=== PATIENT | female | born 1985 | race Caucasian/White ===

== ENCOUNTER 2018-11-25 13:19 | Emergency (ER) | payer BC ==
[2018-11-25] MEDS ORDERED: ACETAMINOPHEN 325 MG TABLET PO ONE (14:58)
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
[2018-11-25 16:59] VITALS: BP 112/60
== END 2018-11-25 17:01 | disposition home or self-care (01) ==
LOC: EEVIPCON 13:19 → ER 13:19
DX: S09.90XA Unspecified injury of head, initial encounter (principal); S69.91XA Unspecified injury of right wrist, hand and finger(s), initial encounter; T14.8XXA Other injury of unspecified body region, initial encounter; R51 Headache; M79.641 Pain in right hand; R07.81 Pleurodynia; Y04.2XXA Assault by strike against or bumped into by another person, initial encounter; F17.200 Nicotine dependence, unspecified, uncomplicated
CPT/HCPCS: 70450; 70486; 99284

== ENCOUNTER 2019-02-06 14:16 | Emergency (ER) | payer SELFPAY ==
--- NOTE | 2019-02-06 14:49 | ER Document Report ---
ED Medical Screen (RME) - General Chief Complaint: Suicidal Ideation Stated Complaint: PSYCH EVAL Time Seen by Provider: 02/06/19 14:45 Primary Care Provider: ZAK OLIVAS DO [Primary Care Provider] - Follow up as needed Notes: Patient is a 33-year-old female presents to the emergency department for suicidal ideations. Upon my evaluation patient is hysterically crying. She just keeps saying over and over again "I just need help, I am a good person, I do not want to end it all." According to nurses who spoke with the patient prior to my evaluation states patient was admitting to "taking a bunch of pills and sleeping forever." LUNGS: Clear to auscultation bilaterally, no wheezes, rales, or rhonchi. No respiratory distress. PSYCH: Flat affect, depressed mood. Hysterically crying. I have greeted and performed a rapid initial assessment of this patient. A comprehensive ED assessment and evaluation of the patient, analysis of test results and completion of the medical decision making process will be conducted by additional ED providers. I have specifically instructed the patient or family members with the patient to immediately return to any nursing staff should anything change in the patient's condition or with their chief complaint. This medical record was dictated with voice recognizing software. There may be grammatical, syntax errors that are unintended. TRAVEL OUTSIDE OF THE [place] IN LAST 30 DAYS: No - Related Data Allergies/Adverse Reactions: metoclopramide HCl [From Reglan] Allergy (Severe, Verified 02/06/19 14:19) Abnormal behavior prochlorperazine edisylate [From Compazine] Allergy (Severe, Verified 02/06/19 14:19) Abnormal behavior ketorolac [From Toradol] Allergy (Verified 02/06/19 14:19) sertraline HCl [From Zoloft] Allergy (Verified 02/06/19 14:19) skin crawls sumatriptan [From Imitrex] Allergy (Verified 02/06/19 14:19) skin crawls Influenza Virus Vaccines [Influenza Virus Vaccine] Adverse Reaction (Unknown, Verified 02/06/19 14:19) Hives Past Medical History - Past Medical History Cardiac Medical History: Denies: Hx Coronary Artery Disease, Hx Heart Attack, Hx Hypertension Pulmonary Medical History: Denies: Hx Asthma, Hx Bronchitis, Hx COPD, Hx Pneumonia Neurological Medical History: Reports: Hx Migraine. Denies: Hx Cerebrovascular Accident, Hx Seizures Renal/ Medical History: Reports: Hx Kidney Stones. Denies: Hx Peritoneal Dial ysis Musculoskeltal Medical History: Denies Hx Arthritis, Reports Hx Muscle Spasm - Attributed to MS Psychiatric Medical History: Reports: Hx Anxiety, Hx Depression Past Surgical History: Reports: Hx Adenoidectomy, Hx Appendectomy, Hx Cholecystectomy, Hx Hysterectomy, Hx Tonsillectomy - T/A, Hx Tubal Ligation - Immunizations Immunizations up to date: Yes Hx Diphtheria, Pertussis, Tetanus Vaccination: Yes Physical Exam - Vital signs Vitals: Temp Pulse Resp BP Pulse Ox 98.2 F 89 14 149/77 H 95 02/06/19 14:18 02/06/19 14:18 02/06/19 14:18 02/06/19 14:18 02/06/19 14:18 Course - Vital Signs Vital signs: Temp Pulse Resp BP Pulse Ox 98.2 F 89 14 149/77 H 95 02/06/19 14:18 02/06/19 14:18 02/06/19 14:18 02/06/19 14:18 02/06/19 14:18 Doctor's Discharge - Discharge Referrals: ZAK OLIVAS DO [Primary Care Provider] - Follow up as needed
[2019-02-06 15:27] LABS: ABSOLUTE BASOPHILS # (AUTO) 0.1 10^3/uL (0.0-0.2); ABSOLUTE EOSINOPHILS # (AUTO) 0.1 10^3/uL (0.0-0.6); ABSOLUTE LYMPHOCYTES (AUTO) 2.7 10^3/uL (0.5-4.7); ABSOLUTE MONOCYTES (AUTO) 0.7 10^3/uL (0.1-1.4); ABSOLUTE NEUT (AUTO) 9.1 10^3/uL (1.7-8.2); BASOPHILS % (AUTO) 1.1 % (0-2); EOSINOPHILS % (AUTO) 0.5 % (0-6); HEMATOCRIT 43.4 % (36.0-47.0); HEMOGLOBIN 14.7 g/dL (12.0-15.5); LYMPHOCYTES % (AUTO) 21.3 % (13-45); MEAN CORPUSCULAR HEMOGLOBIN 29.2 pg (27.0-33.4); MEAN CORPUSCULAR HGB CONC 33.9 g/dL (32.0-36.0); MEAN CORPUSCULAR VOLUME 86 fl (80-97); MONOCYTES % (AUTO) 5.3 % (3-13); RED BLOOD COUNT 5.04 10^6/uL (3.72-5.28); RED CELL DISTRIBUTION WIDTH 13.6 % (11.5-14.0); SEGMENTED NEUTROPHILS % (AUTO) 71.8 % (42-78); TOTAL CELLS COUNTED % (AUTO) 100 %; WHITE BLOOD COUNT 12.7 10^3/uL (4.0-10.5)
[2019-02-06 15:35] LABS: PLATELET COUNT 348 10^3/uL (150-450)
[2019-02-06 15:41] LABS: ALANINE AMINOTRANSFERASE 26 U/L (9-52); ALBUMIN 4.8 g/dL (3.5-5.0); ALKALINE PHOSPHATASE 53 U/L (38-126); ANION GAP 11 (5-19); ASPARTATE AMINO TRANSFERASE 22 U/L (14-36); BILIRUBIN,DIRECT 0.4 mg/dL (0.0-0.4); BILIRUBIN,TOTAL 0.6 mg/dL (0.2-1.3); BLOOD UREA NITROGEN 7 mg/dL (7-20); CALCIUM 10.3 mg/dL (8.4-10.2); CARBON DIOXIDE 28 mmol/L (22-30); CHLORIDE 104 mmol/L (98-107); GLUCOSE 103 mg/dL (75-110); POTASSIUM 3.7 mmol/L (3.6-5.0); SODIUM 143.4 mmol/L (137-145); TOTAL PROTEIN 7.8 g/dL (6.3-8.2)
[2019-02-06 15:42] LABS: ACETAMINOPHEN < 10 ug/mL (10-30); ALCOHOL < 10 mg/dL (NONE DETECTED); SALICYLATE < 1.0 mg/dL (2.0-20.0)
--- NOTE | 2019-02-06 15:51 | ER Document Report ---
ED Psych Disorder / Suicide <AR POND - Last Filed: 02/07/19 12:55> - General TRAVEL OUTSIDE OF THE U.S. IN LAST 30 DAYS: No <ZAK DOWD - Last Filed: 02/07/19 13:19> - General Chief Complaint: Suicidal Ideation Stated Complaint: PSYCH EVAL Time Seen by Provider: 02/06/19 14:45 Primary Care Provider: [facility] [Outside] - 02/07/19 [facility] [Outside] - Follow up as needed ZAK OLIVAS DO [Primary Care Provider] - Follow up as needed Notes: Patient says that she is dependent on drugs, mostly heroin for many years. She says that she uses any drugs she can get her hands on. She is been through detox once before about 2 years ago without success. Patient last used heroin Thursday evening. At this time, she is experiencing panic attacks, sweats, nausea, and vomiting. Denies any recent illness. Denies any fevers. Past medical history of anxiety and depression. (ZAK DOWD) - Related Data Allergies/Adverse Reactions: metoclopramide HCl [From Reglan] Allergy (Severe, Verified 02/06/19 14:19) Abnormal behavior prochlorperazine edisylate [From Compazine] Allergy (Severe, Verified 02/06/19 14:19) Abnormal behavior ketorolac [From Toradol] Allergy (Verified 02/06/19 14:19) sertraline HCl [From Zoloft] Allergy (Verified 02/06/19 14:19) skin crawls sumatriptan [From Imitrex] Allergy (Verified 02/06/19 14:19) skin crawls Influenza Virus Vaccines [Influenza Virus Vaccine] Adverse Reaction (Unknown, Verified 02/06/19 14:19) Hives Past Medical History - Social History Smoking Status: Current Every Day Smoker Frequency of alcohol use: None Drug Abuse: Cocaine, Heroin, Other Family History: Reviewed & Not Pertinent Patient has suicidal ideation: Yes Patient has homicidal ideation: No Neurological Medical History: Reports: Hx Migraine. Denies: Hx Cerebrovascular Accident, Hx Seizures Renal/ Medical History: Reports: Hx Kidney Stones Musculoskeletal Medical History: Denies Hx Arthritis, Reports Hx Muscle Spasm - Attributed to MS Psychiatric Medical History: Reports: Hx Anxiety, Hx Depression Past Surgical History: Reports: Hx Adenoidectomy, Hx Appendectomy, Hx Cholecystectomy, Hx Hysterectomy, Hx Tonsillectomy - T/A, Hx Tubal Ligation - Immunizations Immunizations up to date: Yes Hx Diphtheria, Pertussis, Tetanus Vaccination: Yes <ZAK DOWD - Last Filed: 02/07/19 13:19> Review of Systems <ZAK DOWD - Last Filed: 02/07/19 13:19> - Review of Systems Notes: CONSTITUTIONAL : Denies fever. CARDIOVASCULAR: Denies chest pain. RESPIRATORY: Denies cough, chest congestion, or shortness of breath. GASTROINTESTINAL: Patient has had some abdominal cramping as well as nausea and vomiting. A. GENITOURINARY: Denies difficulty or painful urinating, urinary frequency, blood in urine. (ZAK DOWD) Physical Exam - Vital signs Interpretation: Normal <ZAK DOWD - Last Filed: 02/07/19 13:19> - Vital signs Vitals: Temp Pulse Resp BP Pulse Ox 98.2 F 89 14 149/77 H 95 02/06/19 14:18 02/06/19 14:18 02/06/19 14:18 02/06/19 14:18 02/06/19 14:18 Notes: PHYSICAL EXAMINATION: GENERAL: Very anxious, tearful, HEAD: Atraumatic, normocephalic. NECK: Normal range of motion, supple. LUNGS: Breath sounds clear and equal bilaterally. HEART: Regular rate and rhythm without murmurs heard. ABDOMEN: Soft, nontender. No guarding or rebound or masses felt. (ZAK DOWD) Course - Laboratory Result Diagrams: 02/06/19 15:00 02/06/19 15:00 <AR POND - Last Filed: 02/07/19 12:55> - Laboratory Result Diagrams: 02/06/19 15:00 02/06/19 15:00 <ZAK DOWD - Last Filed: 02/07/19 13:19> - Re-evaluation Re-evalutation: 02/06/19 16:30 Routine labs will be ordered. Mental health consult requested. (ZAK DOWD) - Vital Signs Vital signs: Temp Pulse Resp BP Pulse Ox 98 F 86 16 102/54 L 97 02/07/19 09:32 02/07/19 09:32 02/07/19 09:32 02/07/19 09:32 02/07/19 09:32 - Laboratory Laboratory results interpreted by me: 02/06/19 02/06/19 02/06/19 15:00 15:00 16:48 WBC 12.7 H Absolute Neutrophils 9.1 H Calcium 10.3 H Urine Urobilinogen 2.0 H Ur Leukocyte Esterase MODERATE H Salicylates < 1.0 L Acetaminophen < 10 L Discharge <AR POND - Last Filed: 02/07/19 12:55> <ZAK DOWD - Last Filed: 02/07/19 13:19> - Discharge Clinical Impression: Suicidal ideation, Heroin abuse, Heroin withdrawal, Desire for detoxification Condition: Stable Disposition: HOME, SELF-CARE Additional Instructions: You have been evaluated by both medical and behavioral health providers while in the emergency department. You have been cleared from both acute medical and psychiatric issues. You stated you want and need help with heroin addiction and expressed feeling restless (often withdrawal symptom). It is felt you would benefit from inpatient heroin detoxification which [facility] will assist you with and is voluntary. DEPRESSION: Your evaluation reveals that you have mental depression. While symptoms may be vague, they often include disturbance of sleep, fatigue, loss of appetite, and general loss of interest in life. While depression may be a side effect of drugs, or a reaction to a major change in your life, many cases have no known cause. If depression is acute, and related to a major loss in your life, you can expect it to clear completely with time. If you have been depressed a long time, are prone to repeated bouts of depression or low mood, or have been thinking of suicide, get help. Depression can be treated with anti-depressant medication and counselling. Long-term depression will often take a few weeks to clear, even with appropriate medication. Follow-up care is important. SUICIDAL IDEATION: Suicidal ideation is a common medical term for thoughts about suicide, w hich may be as detailed as a formulated plan, without the suicidal act itself. Although most people who undergo suicidal ideation do not commit suicide, some go on to make suicide attempts. The range of suicidal ideation varies greatly from fleeting to detailed planning, role playing, and unsuccessful attempts. While thoughts about suicide are common, most people do not carry out serious actions to commit suicide. Based upon your evaluation and discussion with you, we do not believe you are currently at risk to act upon your thoughts of suicide. You have agreed to return to the Emergency Department, at any time, if you feel inclined to act upon your suicidal thoughts. NARCOTIC / OPIOD ABUSE: Narcotics and opioids are pain-relieving drugs that are often abused. They a re addicting. Narcotics cause euphoria, but it often takes increasing amounts to "feel good" and avoid withdrawal symptoms. Overdose of narcotics causes small pupils, coma, and decreased breathing. It's a common cause of . Purity of street narcotics is unpredictable. Injection of narcotics is risky for abscesses, endocarditis (heart infection), pneumonia, and AIDS. Withdrawal from narcotics causes goose bumps, watery mouth, sweating, nasal congestion, muscle aches, abdominal cramps, vomiting, and diarrhea. There's often restlessness and confusion. Treatment programs are available, but you must make the decision to quit. Medication (such as clonidine) can be prescribed to control the symptoms of withdrawal. FOLLOW-UP CARE: You have been provided prescriptions for Zyprexa 2.5MG twice a day for mood stabilization/impulse control/can aid with abstaining from substances and Vistaril 50MG as needed for withdrawal/anxiety. You should take these as prescri bed. You are being linked to [facility] for voluntary heroin detoxification placement. They are meeting you in the emergency department lobby at discharge. If you experience worsening or a significant change in your symptoms, notify the physician immediately, utilize mobile crisis or return to the Emergency Department at any time for re-evaluation. Prescriptions: Hydroxyzine Pamoate [Vistaril 50 mg Capsule] 50 mg PO QIDP PRN #30 capsule PRN Reason: Olanzapine [Zyprexa 2.5 Mg Tablet] 2.5 mg PO BID #30 tablet Referrals: ZAK OLIVAS DO [Primary Care Provider] - Follow up as needed [facility] [Outside] - Follow up as needed [facility] [Outside] - 02/07/19
[2019-02-06 17:12] LABS: AMORPHOUS SEDIMENT,URINE TRACE /HPF; APPEARANCE,URINE CLOUDY; BILIRUBIN,URINE NEGATIVE (NEGATIVE); CALCIUM OXALATE CRYSTALS,URINE RARE /HPF; COLOR,URINE YELLOW; GLUCOSE, URINE NEGATIVE (NEGATIVE); KETONES,URINE NEGATIVE (NEGATIVE); LEUKOCYTE ESTERASE,URINE MODERATE (NEGATIVE); NITRITE,URINE NEGATIVE (NEGATIVE); PROTEIN,URINE NEGATIVE (NEGATIVE)
[2019-02-06] MEDS: HYDROXYZINE PAMOATE 50 MG CAPSULE PO PRN (17:17)
[2019-02-06] MEDS: OLANZAPINE 2.5 MG TABLET PO SCH (17:17)
[2019-02-06 17:23] LABS: URINE AMPHETAMINES SCREEN NEGATIVE; URINE BARBITURATES SCREEN NEGATIVE; URINE BENZODIAZEPINES SCREEN NEGATIVE; URINE COCAINE SCREEN UNCONFIRMED POSITIVE; URINE MARIJUANA (THC) SCREEN NEGATIVE; URINE METHADONE SCREEN NEGATIVE; URINE PHENCYCLIDINE SCREEN NEGATIVE
--- NOTE | 2019-02-06 19:01 | EKG REPORT ---
SEVERITY:- BORDERLINE ECG - SINUS RHYTHM BORDERLINE T ABNORMALITIES, ANTERIOR LEADS : Confirmed by: Feli Kunz MD 06-Feb-2019 19:01:06
--- NOTE | 2019-02-06 22:01 | PSYCHOLOGICAL NOTE ---
Psych Note - Psych Note Date seen by psych provider: 02/06/19 Time seen by psych provider: 14:35 - Chart review at 1435. Discussion with Attending ED Physician at 1543. Evaluation from [id number]. Contacted [facility] for possible referral at 1616. Psych Note: Presenting Problem: Walk in said she was hearing voices, had SI with plan to OD, that she was addicted to drugs and needed help and she presented tearful in triage. She has an allergy to Zoloft listed. Her home medications are listed as Ambien 10MG QHS PRN, Prozac 40MG QD, Klonopin 0.1MG Q12 PRN and Clonidine 1MG ASDIR PRN. Attending ED Physician reported patient said she would use any drugs she could get her hands on, preferred Heroin, last used Thursday, has had previous Detox and noted withdrawal of panic attacks/nausea/vomiting. She stated she injects the heroin and was at the [facility] 2 years ago. She denied any Methadone or Suboxone treatment. She stated she "needed something to relax," could not lay still and became tearful. She stated she wanted help. She reported she still has BCBS, was made aware of [facility] or [facility]. She stated she preferred something in [place] but was open to treatment that was going to be effective. Registration noted when they run patient's information [facility] says inactive status. Male named Cong at bedside and patient gave verbal consent to speak freely in his presence. Contacted Elina Cold Saw Operator at [facility] for referral. Provided patient's es 's name and birthday which was not enough for their insurance verification. Tried calling [facility] about obtaining new insurance card (patient gave verbal consent to do so) however person said it was the wrong number. Diagnosis: Opioid Use Disorder, Severe per patient Medication recommendations made by the psychiatric medical provider, Dr. Eric MD., includes: Add Zyprexa 2.5MG twice a day for psychosis/mood stabilization/impulse control/withdrawal Vistaril 50MG every 4 hours as needed for anxiety/agitation Impression/Plan: Recommendation for 24 Hour IVC Petition. Patient initially endorsed SI with plan to OD and hearing voices. She admitted to heroin use via injection and using anything she could get her hands on. She stated she wanted help. She mentioned panic attacks, nausea, vomiting, was tearful and unable to lay still which could be withdrawal symptoms since she reported last use as Thursday. Tried making referral to [facility] but unable to verify BCBS. Consulted with Dr. Jiang regarding the management and care of patient. ED Physician in agreement with recommendations.
[2019-02-07 09:34] VITALS: BP 102/54
[2019-02-07] MEDS: HYDROXYZINE PAMOATE 50 MG CAPSULE PO PRN (09:55)
[2019-02-07] MEDS: OLANZAPINE 2.5 MG TABLET PO SCH (09:55)
--- NOTE | 2019-02-07 10:05 | ER Document Report ---
Doctor's Note Notes: 02/07/19 10:04 Rounds: Chart reviewed and patient interviewed. I saw this patient yesterday when she was admitted. She is supposed to be addicted to opiates and is going into withdrawal. Multiple complaints of shakes, abdominal cramping, nausea,. Patient's labs were positive for cocaine. Her urine looks suggestive of a UTI, the patient has no symptoms of UTI. Vital signs are all essentially normal. Patient appears to be medically stable for transfer or discharge. Rylie Bang MD
--- NOTE | 2019-02-08 09:17 | PSYCHOLOGICAL NOTE ---
Psych Note - Psych Note Date seen by psych provider: 02/07/19 Time seen by psych provider: 09:24 - Evaluation from [id number]. Coordination with [facility]. Psych Note: Presenting Problem: Walk in said she was hearing voices, had SI with plan to OD, that she was addicted to drugs and needed help and she presented tearful in triage. Patient was started on medications (Zyprexa 2.5MG BID, Vistaril 50MG QID PRN) yesterday and held to ensure she tolerated them well and also assist in managing heroin detox. She stated she wanted help. She thought she still had BCBS, held overnight to allow time for confirmation or denial of such, unable to locate and active policy (per [facility] Registration and [facility] could not verify with minimal information provided about ex ) and wanted to ensure linkage to appropriate detox/treatment facilities. Today she reported feeling "restless" and said "I just want help." She presented agitated and irritable likely due to withdrawal. Only when informed of plan of care to discharge to [facility] for voluntary detox placement did she report being homeless and not having money to fill prescriptions. She then became irritable as evidenced by louder tone and turning her back toward this clinician, then started crying (mood lability another likely symptom of withdrawal). She stated "you guys don't even care, you are not helping me, what you are just going to let me go and I'm suicidal." She did not provide any plan or intent. She had not mentioned anything related to SI since her initial triage assessment. Patient was alert and oriented x5 and was able to express self/wants/needs. [facility] assisted patient in making phone call from nurses station phone to [facility] and planned meeting in ED lobby at discharge. [facility] worker, Hugo, met with patient at ED. This clinician and him coordinated care. This clinician called to lobby for another patient. This patient was sitting nearby and asked where she was supposed to go and what she was supposed to do. She noted [facility] the [facility], they were full, and IF instructed her to call the [facility] first thing tomorrow morning. She stated she could not go to the local homeless correction. She was tearful about the drink vending machine taking her money. This clinician went to ED for additional correction/housing resources. Provided patient with some drinks (2 small juices, floyd sher in Styrofoam cup) and information on [facility] [place] [facility] Explained she could try there or other surrounding [facility] shelters but would need transportation. Inquired if she reached out to her friend Cong. She was on the phone with her mother trying to get support. She asked this clinician to call her mother, Kareem ([phone]) to inform her of plan and what she has been linked to. Patient was asked again if this clinician had verbal consent to call mother and include her in plan of care. Patient gave verbal consent. Called mother and informed her patient came to the ED seeking help, had been linked to [facility] for voluntary detox placement, she is to call the [facility] in the morning to check in bed availability. Mother stated she agreed to allow patient to stay the night but only one night. Mother stated patient has "burned her bridges." Patient made war e mother was giving her one night, she was encouraged to call [facility] in the morning and if no bed availability to call [facility] for other placement option availability. She agreed to do so. Diagnosis: 304.00 (F11.20) Opioid Use Disorder, Severe per patient 292.0 (F11.23) Opioid Withdrawal (likely since patient reported last use Thursday) Impression/Plan: Patient is cleared from acute psychiatric services. Recommendation to rescind 24 Hour IVC Petition. She was held overnight to begin medications, aid in managing withdrawal symptoms and provide linkage to volunta ry heroin detox as she requested. She never mentioned SI except initial triage and then when being informed of plan of care. At plan of care she also noted being homeless and having no money. Linked patient directly to [facility] for voluntary detox placement. [facility] worker, Hugo, met patient. Patient also able to get some support from her mother (able to spend the night there, shows resourcefulness, planning and making arrangement so hope). Provided patient with the outpatient MH resource sheet which highlighted [facility] contact information, as well as [facility] for outpatient dual diagnosis substance abuse and mental health services/treatment. She was also given [facility] contact information and informed she could try surrounding [facility] homeless shelters if she needed additional temporary housing. She was reminded/encouraged to call [facility] in the morning for bed availability and if none to contact [facility]. Consulted with Dr. Jiang regarding the management and care of patient. ED Physician in agreement with recommendations.
== END 2019-02-07 15:00 | disposition home or self-care (01) ==
LOC: ER 14:16
DX: F11.23 Opioid dependence with withdrawal (principal); F14.10 Cocaine abuse, uncomplicated; F41.0 Panic disorder [episodic paroxysmal anxiety]; R45.851 Suicidal ideations; R61 Generalized hyperhidrosis; R11.2 Nausea with vomiting, unspecified; R10.9 Unspecified abdominal pain; F17.200 Nicotine dependence, unspecified, uncomplicated; Z88.8 Allergy status to other drugs, medicaments and biological substances; Z88.6 Allergy status to analgesic agent
CPT/HCPCS: 93005; 99285; 36415; 80307 ×4; 84703; 85025; 80053; 81001; 93010; J3490 ×2

== ENCOUNTER 2019-08-27 10:13 | Emergency (ER) | payer SELFPAY ==
[2019-08-27] MEDS ORDERED: BISMUTH SUBSALICYLATE 262 MG TAB.CHEW PO ONE (10:41)
[2019-08-27] MEDS ORDERED: ONDANSETRON 4 MG TAB.RAPDIS PO ONE (10:41)
--- NOTE | 2019-08-27 10:46 | ER Document Report ---
HPI - HPI Patient complains to provider of: Nausea vomiting diarrhea body aches flu symptoms Time Seen by Provider: 08/27/19 10:36 Onset: Yesterday Onset/Duration: Sudden, Persistent Quality of pain: Achy Pain Level: 2 Context: 34-year-old female with history of migraines presents emergency department with complaints of nausea vomiting diarrhea body aches since yesterday. Unsure of fevers because she has been taking Tylenol Motrin as indicated. She reports she is having trouble holding fluids down. Reports her body hurts she is has chills. Patient did not receive the flu vaccine. Associated Symptoms: Body/muscle aches, Diarrhea, Nausea, Vomiting Exacerbated by: Denies Relieved by: Denies Similar symptoms previously: No Recently seen / treated by doctor: No - REPRODUCTIVE LMP: hysterectomy Reproductive: DENIES: : Past Medical History - General Information source: Patient Last Menstrual Period: Hysterectomy - Social History Smoking Status: Current Every Day Smoker Cigarette use (# per day): Yes Chew tobacco use (# tins/day): No Frequency of alcohol use: None Drug Abuse: None Occupation: [employer] Family History: Reviewed & Not Pertinent Patient has suicidal ideation: No Patient has homicidal ideation: No - Past Medical History Cardiac Medical History: Denies: Hx Coronary Artery Disease, Hx Heart Attack, Hx Hypertension Pulmonary Medical History: Denies: Hx Asthma, Hx Bronchitis, Hx COPD, Hx Pneumonia Neurological Medical History: Reports: Hx Migraine. Denies: Hx Cerebrovascular Accident, Hx Seizures Renal/ Medical History: Reports: Hx Kidney Stones. Denies: Hx Peritoneal Dialysis Musculoskeletal Medical History: Denies Hx Arthritis, Reports Hx Muscle Spasm - Attributed to MS Psychiatric Medical History: Reports: Hx Anxiety, Hx Depression Past Surgical History: Reports: Hx Adenoidectomy, Hx Appendectomy, Hx C holecystectomy, Hx Hysterectomy, Hx Tonsillectomy - T/A, Hx Tubal Ligation - Immunizations Immunizations up to date: Yes Hx Diphtheria, Pertussis, Tetanus Vaccination: Yes Vertical Provider Document - CONSTITUTIONAL Agree With Documented VS: Yes Exam Limitations: No Limitations General Appearance: WD/WN, No Apparent Distress - Nontoxic looking - INFECTION CONTROL TRAVEL OUTSIDE OF THE [place]. IN LAST 30 DAYS: No - HEENT HEENT: Atraumatic, Normocephalic. negative: Conjuctival Injection, Pharyngeal Erythema, Tympanic Membrane Red - Right TM blocked by cerumen - NECK Neck: Normal Inspection, Supple. negative: Lymphadenopathy-Left, Lymphadenopathy-Right - RESPIRATORY Respiratory: Breath Sounds Normal, No Respiratory Distress - CARDIOVASCULAR Cardiovascular: Regular Rate, Regular Rhythm - GI/ABDOMEN Gastrointestinal: Abdomen Soft, Abdomen Non-Tender - BACK Back: Normal Inspection. negative: CVA Tenderness-Right, CVA Tenderness-Left - MUSCULOSKELETAL/EXTREMETIES Musculoskeletal/Extremeties: MAEW, FROM - NEURO Level of Consciousness: Awake, Alert, Appropriate Motor/Sensory: No Motor Deficit - DERM Integumentary: Warm, Dry, No Rash Course - Re-evaluation Re-evalutation: 08/27/19 10:44 Patient presents emergency department with flulike symptoms for the past 36 hours. Reports nausea vomiting diarrhea. Has been taking Tylenol and Motrin. Last Motrin was approximately 1 hour ago. She reports she has been able to keep fluids down. Did not receive her flu shot. Denies recent travel. Patient reports hive allergy to Toradol but has taken Pepto in the past. Laboratory Patient drinking p.o. fluids. Influenza negative, labs unremarkable. Leuks noted in UA. Patient denies pain with void denies urinary frequency. Patient was prescribed Zofran dispense pack. Instructed to take medications as prescribed push fluids take Pepto as indicated. She was instructed to return here if she is unable to hold any fluids down. She verbalized understanding to all instructions 08/27/19 08/27/19 08/27/19 10:48 10:52 10:52 WBC 13.9 H RBC 4.99 Hgb 15.2 Hct 44.0 MCV 88 MCH 30.5 MCHC 34.6 RDW 13.0 Plt Count 359 Lymph % (Auto) 13.4 [place] % (Auto) 5.3 Eos % (Auto) 1.5 Baso % (Auto) 0.5 Absolute Neuts (auto) 11.0 H Absolute Lymphs (auto) 1.9 Absolute Monos (auto) 0.7 Absolute Eos (auto) 0.2 Absolute Basos (auto) 0.1 Seg Neutrophils % 79.3 H Sodium 139.7 Potassium 4.2 Chloride 106 Carbon Dioxide 23 Anion Gap 11 BUN 13 Creatinine 0.62 Est GFR ( Amer) > 60 Est GFR (MDRD) Non-Af > 60 Glucose 86 Calcium 9.8 Total Bilirubin 0.7 Direct Bilirubin 0.0 Neonat Total Bilirubin Not Reportable Neonat Direct Bilirubin Not Reportable Neonat Indirect Bili Not Reportable AST 21 ALT 19 Alkaline Phosphatase 51 Total Protein 7.5 Albumin 4.8 Urine Color Urine Appearance Urine pH Ur Specific [place] Urine Protein Urine Glucose (UA) Urine Ketones Urine Blood Urine Nitrite Urine Bilirubin Urine Urobilinogen Ur Leukocyte Esterase Urine WBC (Auto) Urine RBC (Auto) Urine Bacteria (Auto) Squamous Epi Cells Auto Urine Mucus (Auto) Urine Ascorbic Acid POC Stool Occult Blood Influenza A (Rapid) NEGATIVE Influenza B (Rapid) NEGATIVE 08/27/19 08/27/19 12:25 13:40 WBC RBC Hgb Hct MCV MCH MCHC RDW Plt Count Lymph % (Auto) [place] % (Auto) Eos % (Auto) Baso % (Auto) Absolute Neuts (auto) Absolute Lymphs (auto) Absolute Monos (auto) Absolute Eos (auto) Absolute Basos (auto) Seg Neutrophils % Sodium Potassium Chloride Carbon Dioxide Anion Gap BUN Creatinine Est GFR ( Amer) Est GFR (MDRD) Non-Af Glucose Calcium Total Bilirubin Direct Bilirubin Neonat Total Bilirubin Neonat Direct Bilirubin Neonat Indirect Bili AST ALT Alkaline Phosphatase Total Protein Albumin Urine Color YELLOW Urine Appearance CLOUDY Urine pH 5.0 Ur Specific [place] 1.025 Urine Protein NEGATIVE Urine Glucose (UA) NEGATIVE Urine Ketones TRACE H Urine Blood SMALL H Urine Nitrite NEGATIVE Urine Bilirubin NEGATIVE Urine Urobilinogen NEGATIVE Ur Leukocyte Esterase MODERATE H Urine WBC (Auto) 15 Urine RBC (Auto) 14 Urine Bacteria (Auto) TRACE Squamous Epi Cells Auto 54 Urine Mucus (Auto) MANY Urine Ascorbic Acid NEGATIVE POC Stool Occult Blood NEGATIVE Influenza A (Rapid) Influenza B (Rapid) 08/27/19 17:19 - Vital Signs Vital signs: Temp Pulse Resp BP Pulse Ox 97.8 F 78 16 107/71 99 08/27/19 10:21 08/27/19 10:21 08/27/19 10:21 08/27/19 10:21 08/27/19 10:21 - Laboratory Result Diagrams: 08/27/19 10:52 08/27/19 10:52 Discharge - Discharge Clinical Impression: Nausea vomiting and diarrhea Condition: Stable Disposition: HOME, SELF-CARE Instructions: Antinausea Medication ([facility]), Diarrhea, Nonspecific ([facility]), OTC Antidiarrhea Medication ([facility]), Vomiting ([facility]) Additional Instructions: *You have been evaluated for nausea/vomiting/diarrhea, *Take medication as prescribed *Over the counter anti-diarrheal as indicated *Ensure adequate fluid intake as discussed to prevent dehydration-clear liquids advance as tolerated Good handwashing *Follow up with a primary care provider within 1 week for recheck *Return to ED for worsening condition, changes, needs, continued vomiting and diarrhea Forms: Smoking Cessation Education
[2019-08-27 11:09] LABS: ABSOLUTE BASOPHILS # (AUTO) 0.1 10^3/uL (0.0-0.2); ABSOLUTE EOSINOPHILS # (AUTO) 0.2 10^3/uL (0.0-0.6); ABSOLUTE LYMPHOCYTES (AUTO) 1.9 10^3/uL (0.5-4.7); ABSOLUTE MONOCYTES (AUTO) 0.7 10^3/uL (0.1-1.4); BASOPHILS % (AUTO) 0.5 % (0-2); EOSINOPHILS % (AUTO) 1.5 % (0-6); HEMOGLOBIN 15.2 g/dL (12.0-15.5); LYMPHOCYTES % (AUTO) 13.4 % (13-45); MEAN CORPUSCULAR HEMOGLOBIN 30.5 pg (27.0-33.4); MEAN CORPUSCULAR HGB CONC 34.6 g/dL (32.0-36.0); MEAN CORPUSCULAR VOLUME 88 fl (80-97); MONOCYTES % (AUTO) 5.3 % (3-13); PLATELET COUNT 359 10^3/uL (150-450); RED BLOOD COUNT 4.99 10^6/uL (3.72-5.28); SEGMENTED NEUTROPHILS % (AUTO) 79.3 % (42-78); TOTAL CELLS COUNTED % (AUTO) 100 %; WHITE BLOOD COUNT 13.9 10^3/uL (4.0-10.5)
[2019-08-27 11:27] LABS: ALBUMIN 4.8 g/dL (3.5-5.0); ALKALINE PHOSPHATASE 51 U/L (38-126); ANION GAP 11 (5-19); ASPARTATE AMINO TRANSFERASE 21 U/L (14-36); BILIRUBIN,TOTAL 0.7 mg/dL (0.2-1.3); BLOOD UREA NITROGEN 13 mg/dL (7-20); CALCIUM 9.8 mg/dL (8.4-10.2); CARBON DIOXIDE 23 mmol/L (22-30); CHLORIDE 106 mmol/L (98-107); GLUCOSE 86 mg/dL (75-110); POTASSIUM 4.2 mmol/L (3.6-5.0); TOTAL PROTEIN 7.5 g/dL (6.3-8.2)
[2019-08-27 11:33] LABS: A TYPE INFLUENZA AG NEGATIVE (NEGATIVE); B INFLUENZA AG NEGATIVE (NEGATIVE)
[2019-08-27 12:58] LABS: APPEARANCE,URINE CLOUDY; BILIRUBIN,URINE NEGATIVE (NEGATIVE); COLOR,URINE YELLOW; GLUCOSE, URINE NEGATIVE (NEGATIVE); KETONES,URINE TRACE mg/dL (NEGATIVE); LEUKOCYTE ESTERASE,URINE MODERATE (NEGATIVE); NITRITE,URINE NEGATIVE (NEGATIVE); PROTEIN,URINE NEGATIVE (NEGATIVE); URINE SPECIFIC GRAVITY 1.025; UROBILINOGEN,URINE NEGATIVE mg/dL (<2.0)
[2019-08-27 14:32] VITALS: BP 105/55
[2019-08-27] MEDS ORDERED: ONDANSETRON ODT 4 MG TAB (6 TAB/ER DISP) PO PRN (14:43)
== END 2019-08-27 15:21 | disposition home or self-care (01) ==
LOC: ER 10:13
DX: R11.2 Nausea with vomiting, unspecified (principal); R19.7 Diarrhea, unspecified; M79.10 Myalgia, unspecified site; F17.210 Nicotine dependence, cigarettes, uncomplicated
CPT/HCPCS: 99283; 85025; 80053; 81001; 87804; S0119

== ENCOUNTER 2019-09-13 19:13 | Emergency (ER) | payer SELFPAY ==
[2019-09-13] MEDS ORDERED: NORMAL SALINE 1000 ML 1,000 ML IV ONE ×2 (19:50→23:19)
--- NOTE | 2019-09-13 19:53 | ER Document Report ---
ED Medical Screen (RME) - General Chief Complaint: Diarrhea Stated Complaint: NAUSEA,VOMITING Time Seen by Provider: 09/13/19 19:44 Notes: Patient is a 34-year-old female who presents emergency department with a chief complaint of nausea, vomiting diarrhea. Patient reports this started today. Patient denies sick contacts. Patient reports body aches. Denies fever. Reports chills. Reports vomiting greater than 20 times today and having greater than 20 episodes of diarrhea. Denies blood in the stool or vomitus. Patient was noted to be hypotensive by EMS with a systolic of 89. Patient was given 8 of Zofran and 1 L of saline and reports that this did help with her symptoms. TRAVEL OUTSIDE OF THE [place] IN LAST 30 DAYS: No - Related Data Allergies/Adverse Reactions: metoclopramide HCl [From Reglan] Allergy (Severe, Verified 09/13/19 19:43) Abnormal behavior prochlorperazine edisylate [From Compazine] Allergy (Severe, Verified 09/13/19 19:43) Abnormal behavior ketorolac [From Toradol] Allergy (Verified 09/13/19 19:43) sertraline HCl [From Zoloft] Allergy (Verified 09/13/19 19:43) skin crawls sumatriptan [From Imitrex] Allergy (Verified 09/13/19 19:43) skin crawls Influenza Virus Vaccines [Influenza Virus Vaccine] Adverse Reaction (Unknown, Verified 09/13/19 19:43) Hives Past Medical History - Social History Frequency of alcohol use: None Drug Abuse: None - Past Medical History Cardiac Medical History: Denies: Hx Coronary Artery Disease, Hx Heart Attack, Hx Hypertension Pulmonary Medical History: Denies: Hx Asthma, Hx Bronchitis, Hx COPD, Hx Pneumonia Neurological Medical History: Reports: Hx Migraine. Denies: Hx Cerebrovascular Accident, Hx Seizures Renal/ Medical History: Reports: Hx Kidney Stones. Denies: Hx Peritoneal Janice lysis Musculoskeltal Medical History: Denies Hx Arthritis, Reports Hx Muscle Spasm - Attributed to MS Psychiatric Medical History: Reports: Hx Anxiety, Hx Depression Past Surgical History: Reports: Hx Adenoidectomy, Hx Appendectomy, Hx Cholecystectomy, Hx Hysterectomy, Hx Tonsillectomy - T/A, Hx Tubal Ligation - Immunizations Immunizations up to date: Yes Hx Diphtheria, Pertussis, Tetanus Vaccination: Yes Physical Exam - Vital signs Vitals: Temp Pulse Resp BP Pulse Ox 99.1 F 88 18 106/53 L 100 09/13/19 19:35 09/13/19 19:35 09/13/19 19:35 09/13/19 19:35 09/13/19 19:35 Course - Re-evaluation Re-evalutation: 09/13/19 19:52 Abdomen soft and nontender. No point tenderness. No active vomiting. Patient is not tachycardic, hypotensive or febrile at this time. Will obtain basic labs. - Vital Signs Vital signs: Temp Pulse Resp BP Pulse Ox 99.1 F 88 18 106/53 L 100 09/13/19 19:35 09/13/19 19:35 09/13/19 19:35 09/13/19 19:35 09/13/19 19:35
[2019-09-13 20:32] LABS: HEMATOCRIT 41.8 % (36.0-47.0); HEMOGLOBIN 14.5 g/dL (12.0-15.5); MEAN CORPUSCULAR HEMOGLOBIN 30.3 pg (27.0-33.4); MEAN CORPUSCULAR HGB CONC 34.8 g/dL (32.0-36.0); MEAN CORPUSCULAR VOLUME 87 fl (80-97); PLATELET COUNT 293 10^3/uL (150-450); RED BLOOD COUNT 4.79 10^6/uL (3.72-5.28); RED CELL DISTRIBUTION WIDTH 12.9 % (11.5-14.0); WHITE BLOOD COUNT 14.8 10^3/uL (4.0-10.5)
[2019-09-13 20:49] LABS: A TYPE INFLUENZA AG NEGATIVE (NEGATIVE); B INFLUENZA AG NEGATIVE (NEGATIVE)
[2019-09-13 20:50] LABS: ABSOLUTE LYMPHOCYTES# (MANUAL) 0.4 10^3/uL (0.5-4.7); ABSOLUTE MONOCYTES # (MANUAL) 0.4 10^3/uL (0.1-1.4); ALBUMIN 4.4 g/dL (3.5-5.0); ALKALINE PHOSPHATASE 47 U/L (38-126); ANION GAP 10 (5-19); ASPARTATE AMINO TRANSFERASE 18 U/L (14-36); BASOPHILS % (MANUAL) 0 % (0-2); BILIRUBIN,DIRECT 0.2 mg/dL (0.0-0.4); BILIRUBIN,TOTAL 0.8 mg/dL (0.2-1.3); BLOOD UREA NITROGEN 11 mg/dL (7-20); CALCIUM 9.6 mg/dL (8.4-10.2); CARBON DIOXIDE 27 mmol/L (22-30); CHLORIDE 101 mmol/L (98-107); EOSINOPHILS % (MANUAL) 0 % (0-6); GLUCOSE 97 mg/dL (75-110); LYMPHOCYTES % (MANUAL) 3 % (13-45); MONOCYTES % (MANUAL) 3 % (3-13); SEGMENTED NEUTROPHILS % (MAN) 94 % (42-78); TOTAL CELLS COUNTED 100; TOTAL PROTEIN 7.3 g/dL (6.3-8.2)
[2019-09-13 20:51] LABS: OVALOCYTES SLIGHT; PLATELET COMMENT ADEQUATE; PLATELET LARGE PRESENT; POIKILOCYTOSIS SLIGHT
[2019-09-13] MEDS ORDERED: ONDANSETRON HCL INJ/PF 4 MG/2 ML SDV IV ONE (22:52)
[2019-09-13] MEDS ORDERED: LOPERAMIDE HCL 2 MG CAPSULE PO ONE (22:52)
[2019-09-13] MEDS ORDERED: ACETAMINOPHEN 325 MG TABLET PO ONE (23:19)
[2019-09-13] MEDS ORDERED: PROMETHAZINE HCL INJ 50 MG/1 ML VIAL IM ONE (23:19)
[2019-09-13] MEDS ORDERED: KETOROLAC TROMETHAMINE INJ/PF 30 MG/1 ML SDV IV ONE (23:20)
[2019-09-13] MEDS ORDERED: PROMETHAZINE HCL 25 MG SUPP (4 SUPP/ER DISP) PR ONE (23:29)
[2019-09-13] MEDS ORDERED: ONDANSETRON ODT 4 MG TAB (6 TAB/ER DISP) PO PRN (23:29)
[2019-09-13] MEDS ORDERED: DIPHENHYDRAMINE HCL 50 MG/ML VIAL IV ONE (23:29)
--- NOTE | 2019-09-13 23:30 | ER Document Report ---
ED General - General Chief Complaint: Diarrhea Stated Complaint: NAUSEA,VOMITING Time Seen by Provider: 09/13/19 19:44 Primary Care Provider: ZAK OLIVAS DO [Primary Care Provider] - Follow up as needed Notes: 34-year-old female presents emergency department via EMS complaining that she has been having nonstop vomiting and diarrhea since 6 AM this morning associated with chills and leg cramps. Patient states that every time she vomits she has diarrhea. Denies any blood in her emesis or in her stool. States that she tried multiple medications [id number] but she threw them all up. Has also not been able to tolerate floyd sher. Denies any exposure to anybody with C. difficile, denies any exposure to well water or new water sources, denies any exposure to livestock, denies antibiotics in the past 3 months. EMS noted her blood pressure to be 89 systolic. TRAVEL OUTSIDE OF THE [place] IN LAST 30 DAYS: No - Related Data Allergies/Adverse Reactions: metoclopramide HCl [From Reglan] Allergy (Severe, Verified 09/13/19 19:43) Abnormal behavior prochlorperazine edisylate [From Compazine] Allergy (Severe, Verified 09/13/19 19:43) Abnormal behavior ketorolac [From Toradol] Allergy (Verified 09/13/19 19:43) sertraline HCl [From Zoloft] Allergy (Verified 09/13/19 19:43) skin crawls sumatriptan [From Imitrex] Allergy (Verified 09/13/19 19:43) skin crawls Influenza Virus Vaccines [Influenza Virus Vaccine] Adverse Reaction (Unknown, Verified 09/13/19 19:43) Hives Past Medical History - General Information source: Patient - Social History Smoking Status: Current Every Day Smoker Frequency of alcohol use: None Drug Abuse: None Family History: Reviewed & Not Pertinent Patient has suicidal ideation: No Patient has homicidal ideation: No - Past Medical History Cardiac Medical History: Denies: Hx Coronary Artery Disease, Hx Heart Attack, Hx Hypertension Pulmonary Medical History: Denies: Hx Asthma, Hx Bronchitis, Hx COPD, Hx Pneumonia Neurological Medical History: Reports: Hx Migraine. Denies: Hx Cerebrovascular Accident, Hx Seizures Renal/ Medical History: Reports: Hx Kidney Stones. Denies: Hx Peritoneal Dialysis Musculoskeletal Medical History: Denies Hx Arthritis, Reports Hx Muscle Spasm - Attributed to MS Psychiatric Medical History: Reports: Hx Anxiety, Hx Depression Past Surgical History: Reports: Hx Adenoidectomy, Hx Appendectomy, Hx Cholecystectomy, Hx Hysterectomy, Hx Tonsillectomy - T/A, Hx Tubal Ligation - Immunizations Immunizations up to date: Yes Hx Diphtheria, Pertussis, Tetanus Vaccination: Yes Review of Systems - Review of Systems Constitutional: See HPI, Chills, Diaphoresis EENT: No symptoms reported Gastrointestinal: See HPI Musculoskeletal: See HPI -: Yes All other systems reviewed and negative Physical Exam - Vital signs Vitals: Temp Pulse Resp BP Pulse Ox 99.1 F 88 18 106/53 L 100 09/13/19 19:35 09/13/19 19:35 09/13/19 19:35 09/13/19 19:35 09/13/19 19:35 Interpretation: Normal - Notes Notes: GENERAL: Alert, interacts well. No acute distress. HEAD: Normocephalic, atraumatic EYES: Pupils equal, round and reactive to light, extraocular movements intact. ENT: Oral mucosa moist, tongue midline. NECK: Full range of motion, supple, trachea midline. LUNGS: Clear to auscultation bilaterally, no wheezes, rales or rhonchi, no respiratory distress. HEART: Regular rate and rhythm, no murmurs, gallops, rubs. ABDOMEN: Soft, nontender, nondistended, bowel sounds present in all 4 quadrants. EXTREMITIES: Moves all 4 extremities spontaneously, no edema. No cyanosis. NEUROLOGICAL: Alert and oriented x3, normal speech. PSYCH: Normal mood, normal affect. SKIN: Warm, Dry, normal turgor, no rashes or lesions noted. Course - Re-evaluation Re-evalutation: 09/13/19 23:26 CBC shows leukocytosis of 14.8, this is not unexpected, CMP unremarkable, lipase normal, flu swabs negative, no white blood cells in the stool, C. difficile is pending though I have low suspicion for C. difficile given the vomiting and the lack of risk factors. Patient has not vomited since arriving in the emergency department, patient will be treated with Phenergan and Zofran for her nausea and vomiting, Toradol for her leg cramping as well as acetaminophen for her pain. Patient is going to be given Imodium for her diarrhea. 2 L of fluid will be given, blood pressure is recovered nicely. As soon as the patient is able to tolerate oral intake patient will be discharged home with Zofran and Phenergan. Suspect viral etiology such as norovirus however patient was counseled on reasons to return including fevers, uncontrollable vomiting or diarrhea or large amounts of blood in the vomit or the stool. 09/14/19 00:23 Patient tolerating oral without difficulty, having no difficulty, requesting to leave. Will be discharged home. - Vital Signs Vital signs: Temp Pulse Resp BP Pulse Ox 99.1 F 88 18 106/53 L 100 09/13/19 19:35 09/13/19 19:35 09/13/19 19:35 09/13/19 19:35 09/13/19 19:35 - Laboratory Result Diagrams: 09/13/19 20:00 09/13/19 20:00 Laboratory results interpreted by me: 09/13/19 09/13/19 09/13/19 20:00 20:00 23:33 WBC 14.8 H Seg Neuts % (Manual) 94 H Lymphocytes % (Manual) 3 L Abs Neuts (Manual) 13.9 H Abs Lymphs (Manual) 0.4 L Lipase 18.4 L Urine Ketones TRACE H Urine Blood MODERATE H Urine Urobilinogen 4.0 H Ur Leukocyte Esterase SMALL H Discharge - Discharge Clinical Impression: Nausea vomiting and diarrhea Condition: Stable Disposition: HOME, SELF-CARE Additional Instructions: I suspect your nausea, vomiting and diarrhea is coming from a virus. I cannot be certain. Please use ibuprofen (Motrin or Advil) 600-800 mg every 8 hours as needed for pain or fever. You may also use acetaminophen (Tylenol) 1000 mg every 4-6 hours as needed for pain or fever. Please be aware that many medications contain acetaminophen, do not exceed a total of 1000 mg of acetaminophen every 6 hours. I have prescribed Zofran and Phenergan for your nausea and vomiting. The Zofran will dissolve under your tongue and stop the vomiting, you may use the Phenergan to decrease your nausea as well if the Zofran does not completely relieve your nausea. You may also use Imodium as directed [id number] to help with your diarrhea. Viral Syndrome The physician has diagnosed a viral infection. Viruses not only cause "colds," but can cause many different symptoms including generalized aching, fever, headache, cough, diarrhea, nausea, vomiting, and fatigue. The treatment, for the most part, is simply relief of symptoms. This means that antibiotics are usually not given. Rest, fluids, pain medications and, occasionally, medication for the specific symptoms that are most bothersome will be prescribed. Use good handwashing to avoid passing the virus to others. Shared toys should be cleaned with disinfectant. Clean the toilets, sinks, and counter surfaces in bathrooms. Launder clothing in hot water. Contact the physician if you develop any new or unusual symptoms such as severe headache, stiff neck, high fever, chest pain, productive cough, or shortness of breath. You should be rechecked if you don't see marked improvement within seven to 10 days. Prescriptions: Promethazine HCl [Phenergan 25 mg Tablet] 1 - 2 tab PO Q6H PRN #15 tablet PRN Reason: Ondansetron [Zofran Odt 4 mg Tablet] 1 - 2 tab PO Q4H PRN #15 tab.rapdis PRN Reason: For Nausea/Vomiting Referrals: ZAK OLIVAS DO [Primary Care Provider] - Follow up as needed
[2019-09-13] MEDS ORDERED: PROMETHAZINE HCL INJ 50 MG/1 ML VIAL ONE (23:36)
[2019-09-13 23:54] LABS: APPEARANCE,URINE SLIGHTLY-CLOUDY; BILIRUBIN,URINE NEGATIVE (NEGATIVE); COLOR,URINE YELLOW; GLUCOSE, URINE NEGATIVE (NEGATIVE); KETONES,URINE TRACE mg/dL (NEGATIVE); LEUKOCYTE ESTERASE,URINE SMALL (NEGATIVE); NITRITE,URINE NEGATIVE (NEGATIVE); PROTEIN,URINE NEGATIVE (NEGATIVE); URINE SPECIFIC GRAVITY 1.025
[2019-09-14 00:25] VITALS: BP 92/42
[2019-09-14 04:07] LABS: C DIFFICILE GDH NEGATIVE (NEGATIVE)
== END 2019-09-14 00:45 | disposition home or self-care (01) ==
LOC: ER 19:13 → EEVIPCON 19:13 → ER 09-14 00:45
DX: R11.2 Nausea with vomiting, unspecified (principal); R19.7 Diarrhea, unspecified; I95.9 Hypotension, unspecified; F17.200 Nicotine dependence, unspecified, uncomplicated; Z90.49 Acquired absence of other specified parts of digestive tract; Z90.710 Acquired absence of both cervix and uterus; Z87.442 Personal history of urinary calculi
CPT/HCPCS: 36415; 87045; 89055; 87205; 83690; 84703; 85025; 80053; 81001; 87804; 87324; 87449; J1200; J3490; J1885; J2550; J2405; J7030; 96361; 96372; 96374; 96375; 99284

== ENCOUNTER 2019-09-23 18:34 | Emergency (ER) | payer SELFPAY ==
[2019-09-23 18:45] VITALS: BP 146/80
== END 2019-09-23 20:10 | disposition left against medical advice (07) ==
LOC: ER 18:34
DX: Z53.21 Procedure and treatment not carried out due to patient leaving prior to being seen by health care provider (principal)

== ENCOUNTER 2019-10-03 07:02 | Emergency (ER) | payer SELFPAY ==
[2019-10-03 07:12] VITALS: BP 99/57
[2019-10-03 08:38] LABS: A TYPE INFLUENZA AG NEGATIVE (NEGATIVE); B INFLUENZA AG NEGATIVE (NEGATIVE)
--- NOTE | 2019-10-03 09:13 | ER Document Report ---
Entered by DENISE CAR SCRIBE 10/03/19 0824 Acting as scribe for:NADINE MULLINS MD ED General - General Chief Complaint: Chest Congestion Stated Complaint: COUGH,CONGESTION,VOMITING Time Seen by Provider: 10/03/19 07:34 Primary Care Provider: ZAK OLIVAS DO [Primary Care Provider] - Follow up as needed Information source: Patient Notes: 34-year-old female presents to the emergency department complaining of chest congestion that began 3 days prior to arrival. Patient reports chest pain, cough, vomiting, throat pain, right ear pain, chest congestion and rhinorrhea. Patient denies sputum, fever, chills, nausea, diarrhea and . TRAVEL OUTSIDE OF THE [place] IN LAST 30 DAYS: No - Related Data Allergies/Adverse Reactions: metoclopramide HCl [From Reglan] Allergy (Severe, Verified 09/13/19 19:43) Abnormal behavior prochlorperazine edisylate [From Compazine] Allergy (Severe, Verified 09/13/19 19:43) Abnormal behavior ketorolac [From Toradol] Allergy (Verified 09/13/19 19:43) sertraline HCl [From Zoloft] Allergy (Verified 09/13/19 19:43) skin crawls sumatriptan [From Imitrex] Allergy (Verified 09/13/19 19:43) skin crawls Influenza Virus Vaccines [Influenza Virus Vaccine] Adverse Reaction (Unknown, Verified 09/13/19 19:43) Hives Past Medical History - General Information source: Patient - Social History Smoking Status: Current Every Day Smoker Cigarette use (# per day): Yes Chew tobacco use (# tins/day): No Frequency of alcohol use: None Drug Abuse: None Family History: Reviewed & Not Pertinent Patient has suicidal ideation: No Patient has homicidal ideation: No Neurological Medical History: Reports: Hx Migraine Renal/ Medical History: Reports: Hx Kidney Stones Musculoskeletal Medical History: Reports Hx Muscle Spasm - Attributed to MS Psychiatric Medical History: Reports: Hx Anxiety, Hx Depression Past Surgical History: Reports: Hx Adenoidectomy, Hx Appendectomy, Hx Cholecystectomy, Hx Hysterectomy, Hx Tonsillectomy - T/A, Hx Tubal Ligation - Immunizations Immunizations up to date: Yes Hx Diphtheria, Pertussis, Tetanus Vaccination: Yes Review of Systems - Review of Systems Constitutional: See HPI. denies: Chills, Fever EENT: See HPI, Ear pain, Nose congestion, Nose discharge, Throat pain Cardiovascular: See HPI. denies: Chest pain Respiratory: See HPI, Cough. denies: Sputum Gastrointestinal: See HPI, Vomiting. denies: Diarrhea, Nausea Genitourinary: No symptoms reported Female Genitourinary: No symptoms reported Musculoskeletal: No symptoms reported Skin: No symptoms reported Hematologic/Lymphatic: No symptoms reported Neurological/Psychological: No symptoms reported -: Yes All other systems reviewed and negative Physical Exam - Vital signs Vitals: Temp Pulse Resp BP Pulse Ox 98.3 F 89 20 99/57 L 97 10/03/19 07:10 10/03/19 07:10 10/03/19 07:10 10/03/19 07:10 10/03/19 07:10 - Notes Notes: Physical Exam: General: Alert, appears ill. HEENT: Normocephalic. Atraumatic. PERRL. Extraocular movements intact. Oropharynx clear. Lymphadenopathy. No tonsils and no exudate. Right TM was clear and non-bulging. Left TM was not clear and was unable to visualize. Neck: Supple. Non-tender. Respiratory: No respiratory distress. Clear and equal breath sounds bilaterally. Cardiovascular: Regular rate and rhythm. Abdominal: Normal Inspection. Non-tender. No distension. Normal Bowel Sounds. Back: No gross abnormalities. Extremities: Moves all four extremities. Upper extremities: Normal inspection. Normal ROM. Lower extremities: Normal inspection. No edema. Normal ROM. Neurological: Normal cognition. AAOx4. Normal speech. Psychological: Normal affect. Normal Mood. Skin: Warm. Dry. Normal color. Course - Re-evaluation Re-evalutation: 10/03/19 09:08 Patient resting comfortably. Pending results at this time check for influenza a or B and both are negative. And rapid strep screen also negative. Patient is hemodynamically stable and is ready for discharge. - Vital Signs Vital signs: Temp Pulse Resp BP Pulse Ox 98.3 F 89 20 99/57 L 97 10/03/19 07:10 10/03/19 07:10 10/03/19 07:10 10/03/19 07:10 10/03/19 07:10 - Laboratory Laboratory results interpreted by me: Lab values influenza a and B both are negative. Rapid strep screen negative Discharge - Discharge Clinical Impression: Upper respiratory infection, Acute pharyngitis Condition: Stable Disposition: HOME, SELF-CARE Instructions: Acetaminophen, Upper Respiratory Illness ([facility]) Additional Instructions: Sore Throat Sore throats may be caused by viruses, bacteria, or fungi. Most are due to a virus, and must get better on their own. Bacterial sore throats, particularly those due to "strep," need treatment with antibiotics. If an antibiotic is prescribed, be sure to take the medication for a full 10 days. Failure to take the antibiotic can result in complications such as rheumatic fever. Sometimes, an injection of antibiotics is given instead of pills or liquid. This single "shot" is equal in effectiveness to the oral medication. To relieve symptoms, take acetaminophen for pain. Sip clear liquids frequently, or eat popsicles or ice chips. Anesthetic sprays or lozenges may help. Make sure the air in the room is not too dry. Avoid using decongestants or antihistamines. Call the doctor if there is no improvement in two days, or if you have difficulty breathing, increasing throat pain, high fever, rash, or frequent vomiting. Recommend Tylenol as needed for pain or fever. Prescriptions: Amoxicillin 1 tab PO TID #30 tab Guaifenesin/Dextromethorphan [Mucinex Dm ER 600-30 mg Tablet] 1 each PO BID 10 Days #20 tab.er.12h Referrals: ZAK OLIVAS DO [Primary Care Provider] - Follow up as needed I personally performed the services described in the documentation, reviewed and edited the documentation which was dictated to the scribe in my presence, and it accurately records my words and actions.
== END 2019-10-03 09:25 | disposition home or self-care (01) ==
LOC: ER 07:02
DX: J02.9 Acute pharyngitis, unspecified (principal); J06.9 Acute upper respiratory infection, unspecified; R09.89 Other specified symptoms and signs involving the circulatory and respiratory systems; R11.10 Vomiting, unspecified; H92.01 Otalgia, right ear
CPT/HCPCS: 87070; 87804; 87880; 99283

== ENCOUNTER 2020-01-11 19:25 | Emergency (ER) | payer SELFPAY ==
[2020-01-11 19:47] VITALS: BP 87/52
--- NOTE | 2020-01-11 20:38 | ER Document Report ---
HPI - HPI Time Seen by Provider: 01/11/20 20:30 Pain Level: 0 - ROS Notes: Patient is a 34-year-old female who presents emergency department with a chief complaint of a rash to her right upper arm. 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 One of the houses that she cleaned had people with ringworm on them. Patient states that it is pruritic. Has been using [id number] ringworm solution, but has not had any relief of her symptoms. Systems Reviewed and Negative: Yes All other systems reviewed and negative - REPRODUCTIVE Reproductive: DENIES: : - MUSCULOSKELETAL Musculoskeletal: DENIES: Extremity pain - DERM Skin Color: Normal Skin Problems: Rash - right upper arm Past Medical History - General Information source: Patient - Social History Smoking Status: Never Smoker Family History: Reviewed & Not Pertinent Patient has homicidal ideation: No - Past Medical History Cardiac Medical History: Denies: Hx Coronary Artery Disease, Hx Heart Attack, Hx Hypertension Pulmonary Medical History: Denies: Hx Asthma, Hx Bronchitis, Hx COPD, Hx Pneumonia Neurological Medical History: Reports: Hx Migraine. Denies: Hx Cerebrovascular Accident, Hx Seizures Renal/ Medical History: Reports: Hx Kidney Stones. Denies: Hx Peritoneal Dialysis Musculoskeletal Medical History: Denies Hx Arthritis, Reports Hx Muscle Spasm - Attributed to MS Psychiatric Medical History: Reports: Hx Anxiety, Hx Depression Past Surgical History: Reports: Hx Adenoidectomy, Hx Appendectomy, Hx Cholecystectomy, Hx Hysterectomy, Hx Tonsillectomy - T/A, Hx Tubal Ligation - Immunizations Immunizations up to date: Yes Hx Diphtheria, Pertussis, Tetanus Vaccination: Yes Vertical Provider Document - CONSTITUTIONAL Agree With Documented VS: Yes Exam Limitations: No Limitations General Appearance: No Apparent Distress - INFECTION CONTROL TRAVEL OUTSIDE OF THE [place] IN LAST 30 DAYS: No - HEENT HEENT: Atraumatic, Normocephalic, PERRLA - NECK Neck: Normal Inspection - RESPIRATORY Respiratory: Breath Sounds Normal, No Respiratory Distress - CARDIOVASCULAR Cardiovascular: Regular Rate, Regular Rhythm Pulses: Normal: Radial - MUSCULOSKELETAL/EXTREMETIES Musculoskeletal/Extremeties: FROM - NEURO Level of Consciousness: Awake, Alert, Appropriate Motor/Sensory: No Motor Deficit, No Sensory Deficit - DERM Integumentary: Warm, Dry, Rash - circular with erythematous ring and white center consistent with tinea infection to medial right upper arm Course - Re-evaluation Re-evalutation: 01/11/20 Physical exam is consistent with ringworm. Have a low suspicion for necrotizing fasciitis. Patient is slightly hypotensive, but she has been hypotensive multiple times on previous visits in the past. I have a low suspicion for sepsis. Patient will follow-up with primary care provider. Follow-up precautions were given. Verbal discharge instructions were given to the patient. They verbalized understanding. They are stable for discharge. - Vital Signs Vital signs: Temp Pulse Resp BP Pulse Ox 99.7 F 75 16 87/52 L 98 01/11/20 20:31 01/11/20 19:44 01/11/20 19:44 01/11/20 19:44 01/11/20 19:44 Discharge - Discharge Clinical Impression: Ringworm Condition: Stable Disposition: HOME, SELF-CARE Additional Instructions: Ringworm (Tinea Corporis) You have a fungal infection of the skin, called tinea corporis. This is sometimes called "ringworm." because it tends forms an enlarging ring on the skin. The infection results from exposure to another person or an animal carrying the fungus, but it is only mildly contagious. There can be mild itching, or sometimes no symptoms at all. The infection is usually treated with antifungal cream. This is applied two or three times daily. Healing may take two or three weeks. Return for re-examination if your symptoms change significantly -- for example, if you develop fever or chills, red streaks, increasing tenderness, swelling, or blisters at the infection site. Prescriptions: Ketoconazole 30 gm TP TID #1 cream..g. Referrals: ZAK OLIVAS DO [Primary Care Provider] - Follow up in 1 week
== END 2020-01-11 20:40 | disposition home or self-care (01) ==
LOC: ER 19:25
DX: B35.9 Dermatophytosis, unspecified (principal)
CPT/HCPCS: 99282

== ENCOUNTER 2020-03-25 14:04 | Emergency (ER) | payer SELFPAY ==
[2020-03-25 14:42] VITALS: BP 114/70
== END 2020-03-25 17:36 | disposition left against medical advice (07) ==
LOC: ER 14:04
DX: Z53.21 Procedure and treatment not carried out due to patient leaving prior to being seen by health care provider (principal)

== ENCOUNTER 2020-04-04 17:23 | Emergency (ER) | payer SELFPAY ==
--- NOTE | 2020-04-04 18:27 | ER Document Report ---
ED Medical Screen (RME) - General Chief Complaint: Abdominal Pain Stated Complaint: ABDOMINAL PAIN Time Seen by Provider: 04/04/20 18:13 Primary Care Provider: ZAK OLIVAS DO [Primary Care Provider] - Follow up as needed Mode of Arrival: Ambulatory Information source: Patient Notes: 34-year-old female presented to ED for complaint of upper abdominal pain burning to to the back. She states she has had this abdominal pain and thinks she has a hernia. She states she has been taking Imodium because she had loose stools but now they are more formed. She states she had a gallbladder removed 8 years ago when she had a hysterectomy and appendectomy. 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 She states she just needs to know why she is hurting so bad in the upper abdomen. I have greeted and performed a rapid initial assessment of this patient. A comprehensive ED assessment and evaluation of the patient, analysis of test results and completion of medical decision making process will be conducted by an additional ED providers. TRAVEL OUTSIDE OF THE [place] IN LAST 30 DAYS: No - Related Data Allergies/Adverse Reactions: metoclopramide HCl [From Reglan] Allergy (Severe, Verified 04/04/20 18:03) Abnormal behavior prochlorperazine edisylate [From Compazine] Allergy (Severe, Verified 04/04/20 18:03) Abnormal behavior ketorolac [From Toradol] Allergy (Verified 04/04/20 18:03) sertraline HCl [From Zoloft] Allergy (Verified 04/04/20 18:03) skin crawls sumatriptan [From Imitrex] Allergy (Verified 04/04/20 18:03) skin crawls Influenza Virus Vaccines [Influenza Virus Vaccine] Adverse Reaction (Unknown, Verified 04/04/20 18:03) Hives Past Medical History - Social History Frequency of alcohol use: None Drug Abuse: None - Past Medical History Cardiac Medical History: Denies: Hx Coronary Artery Disease, Hx Heart Attack, Hx Hypertension Pulmonary Medical History: Denies: Hx Asthma, Hx Bronchitis, Hx COPD, Hx Pneumonia Neurological Medical History: Reports: Hx Migraine. Denies: Hx Cerebrovascular Accident, Hx Seizures Renal/ Medical History: Reports: Hx Kidney Stones. Denies: Hx Peritoneal Dialysis Musculoskeltal Medical History: Denies Hx Arthritis, Reports Hx Muscle Spasm - Attributed to MS Psychiatric Medical History: Reports: Hx Anxiety, Hx Depression Past Surgical History: Reports: Hx Adenoidectomy, Hx Appendectomy, Hx Cholecystectomy, Hx Hysterectomy, Hx Tonsillectomy - T/A, Hx Tubal Ligation - Immunizations Immunizations up to date: Yes Hx Diphtheria, Pertussis, Tetanus Vaccination: Yes Physical Exam - Vital signs Vitals: Temp Pulse Resp BP Pulse Ox 98.3 F 77 18 117/74 100 04/04/20 17:47 04/04/20 17:47 04/04/20 17:47 04/04/20 17:47 04/04/20 17:47 Course - Vital Signs Vital signs: Temp Pulse Resp BP Pulse Ox 98.3 F 77 18 117/74 100 04/04/20 17:47 04/04/20 17:47 04/04/20 17:47 04/04/20 17:47 04/04/20 17:47 Doctor's Discharge - Discharge Referrals: ZAK OLIVAS DO [Primary Care Provider] - Follow up as needed
[2020-04-04 19:25] LABS: ABSOLUTE BASOPHILS # (AUTO) 0.1 10^3/uL (0.0-0.2); ABSOLUTE EOSINOPHILS # (AUTO) 0.6 10^3/uL (0.0-0.6); ABSOLUTE LYMPHOCYTES (AUTO) 3.6 10^3/uL (0.5-4.7); ABSOLUTE MONOCYTES (AUTO) 0.7 10^3/uL (0.1-1.4); BASOPHILS % (AUTO) 0.6 % (0-2); EOSINOPHILS % (AUTO) 5.5 % (0-6); HEMATOCRIT 40.6 % (36.0-47.0); HEMOGLOBIN 14.2 g/dL (12.0-15.5); MEAN CORPUSCULAR HEMOGLOBIN 31.1 pg (27.0-33.4); MEAN CORPUSCULAR VOLUME 89 fl (80-97); PLATELET COUNT 339 10^3/uL (150-450); RED BLOOD COUNT 4.57 10^6/uL (3.72-5.28); RED CELL DISTRIBUTION WIDTH 12.9 % (11.5-14.0); SEGMENTED NEUTROPHILS % (AUTO) 54.9 % (42-78); TOTAL CELLS COUNTED % (AUTO) 100 %; WHITE BLOOD COUNT 10.9 10^3/uL (4.0-10.5)
[2020-04-04 19:37] LABS: APPEARANCE,URINE SLIGHTLY-CLOUDY; BILIRUBIN,URINE NEGATIVE (NEGATIVE); COLOR,URINE YELLOW; GLUCOSE, URINE NEGATIVE (NEGATIVE); KETONES,URINE NEGATIVE (NEGATIVE); LEUKOCYTE ESTERASE,URINE NEGATIVE (NEGATIVE); NITRITE,URINE NEGATIVE (NEGATIVE); PROTEIN,URINE 30 mg/dL (NEGATIVE); URINE SPECIFIC GRAVITY 1.032
[2020-04-04 19:41] LABS: ALBUMIN 3.7 g/dL (3.5-5.0); ALKALINE PHOSPHATASE 49 U/L (38-126); ANION GAP 6 (5-19); ASPARTATE AMINO TRANSFERASE 26 U/L (14-36); BILIRUBIN,DIRECT 0.3 mg/dL (0.0-0.4); BILIRUBIN,TOTAL 0.3 mg/dL (0.2-1.3); BLOOD UREA NITROGEN 16 mg/dL (7-20); CALCIUM 9.3 mg/dL (8.4-10.2); CARBON DIOXIDE 28 mmol/L (22-30); CHLORIDE 105 mmol/L (98-107); GLUCOSE 87 mg/dL (75-110); POTASSIUM 4.2 mmol/L (3.6-5.0); TOTAL PROTEIN 5.8 g/dL (6.3-8.2)
--- NOTE | 2020-04-04 22:14 | RADIOLOGY REPORT (SQ) ---
EXAM DESCRIPTION: CT ABDOMEN PELVIS WITH IV CONTRAST COMPLETED DATE/TME: 04/04/2020 18:28 CLINICAL HISTORY: 34 years, Female, Upper abdominal pain. Post cholecystectomy COMPARISON: None. TECHNIQUE: Images stored on PACS. All CT scanners at this facility use dose modulation, iterative reconstruction, and/or weight based dosing when appropriate to reduce radiation dose to as low as reasonably achievable (ALARA). [facility]: Dose Right [facility]: CareDose [facility]: Dose Right [facility]: Teradose 4D [facility]: CustomMade EXAM DESCRIPTION: CLINICAL HISTORY: Upper abdominal pain. Post cholecystectomy COMPARISON: None Available TECHNIQUE: Contiguous axial images of the abdomen and pelvis were obtained after the administration of intravenous contrast followed by reconstruction images.This exam was performed according to our departmental dose-optimization program, which includes automated exposure control, adjustment of the mA and/or kV according to patient size and/or use of iterative reconstruction technique. FINDINGS: The liver, spleen, pancreas and kidneys are within normal limits. There is no hydronephrosis. The gallbladder is surgically absent. There is no evidence of acute complication. Adrenal glands are within normal limits. Aorta is normal in caliber and tapering. No significant free fluid. No free air. No bowel obstruction. There is no stranding of the mesenteric fat. The appendix appears normal. No evidence of periappendiceal inflammation. IMPRESSION: No acute intra-abdominal abnormality
--- NOTE | 2020-04-05 02:21 | ER Document Report ---
[facility] GI/ - General Chief Complaint: Abdominal Pain Stated Complaint: ABDOMINAL PAIN Time Seen by Provider: 04/04/20 18:13 Primary Care Provider: TAMMI BUCKLEY MD [ACTIVE STAFF] - Follow up as needed ZAK OLIVAS DO [Primary Care Provider] - Follow up as needed Mode of Arrival: Ambulatory TRAVEL OUTSIDE OF THE [place] IN LAST 30 DAYS: No - HPI Patient complains to provider of: Abdominal pain, Diarrhea Onset: Other - Several days Timing/Duration: Sudden Context: Lifting Location: Epigastric Relieved by: Denies Notes: 04/05/20 03:00 Patient is a 34-year-old female who presents with epigastric pain. Patient states that for the past several days she has had intermittent sharp epigastric pain that radiates into her chest. She states this happens when she is lifting things such as when she was lifting her nephew. Patient states that it last several minutes and then resolves. She has taken Tylenol on occasion. She has also taken omeprazole. Patient denies any nausea or vomiting. She states that for the past week she has had diarrhea several times a day. She has been taking Imodium. She states the diarrhea is nonbloody. She denies eating any new or raw foods. No travel. No fevers or chills. She has had an appendectomy, cholecystectomy, hysterectomy in the past. She has no pain currently in the ER. 04/05/20 03:03 - Related Data Allergies/Adverse Reactions: metoclopramide HCl [From Reglan] Allergy (Severe, Verified 04/04/20 18:03) Abnormal behavior prochlorperazine edisylate [From Compazine] Allergy (Severe, Verified 04/04/20 18:03) Abnormal behavior ketorolac [From Toradol] Allergy (Verified 04/04/20 18:03) sertraline HCl [From Zoloft] Allergy (Verified 04/04/20 18:03) skin crawls sumatriptan [From Imitrex] Allergy (Verified 04/04/20 18:03) skin crawls Influenza Virus Vaccines [Influenza Virus Vaccine] Adverse Reaction (Unknown, Verified 04/04/20 18:03) Hives Past Medical History - General Information source: Patient - Social History Smoking Status: Current Every Day Smoker Frequency of alcohol use: None Drug Abuse: None Family History: Reviewed & Not Pertinent - Past Medical History Cardiac Medical History: Denies: Hx Coronary Artery Disease, Hx Heart Attack, Hx Hypertension Pulmonary Medical History: Denies: Hx Asthma, Hx Bronchitis, Hx COPD, Hx Pneumonia Neurological Medical History: Reports: Hx Migraine. Denies: Hx Cerebrovascular Accident, Hx Seizures Renal/ Medical History: Reports: Hx Kidney Stones. Denies: Hx Peritoneal Dialysis Musculoskeletal Medical History: Denies Hx Arthritis, Reports Hx Muscle Spasm - Attributed to MS Psychiatric Medical History: Reports: Hx Anxiety, Hx Depression Past Surgical History: Reports: Hx Adenoidectomy, Hx Appendectomy, Hx Cholecystectomy, Hx Hysterectomy, Hx Tonsillectomy - T/A, Hx Tubal Ligation - Immunizations Immunizations up to date: Yes Hx Diphtheria, Pertussis, Tetanus Vaccination: Yes Review of Systems - Review of Systems Notes: CONSTITUTIONAL: No fever, fatigue or weight loss. SKIN: No rash. HENT: No congestion, ear pain, or sore throat. EYES: No recent vision problems or eye pain. ENDOCRINE: No thyroid problems. No polyuria or polydipsia. CARDIOVASCULAR: No chest pain or edema. RESPIRATORY: No cough, shortness of breath, congestion, or wheezing. GASTROINTESTINAL: No nausea, vomiting, bloody stools. Positive for abdominal pain and diarrhea. GENITOURINARY: No dysuria. MUSCULOSKELETAL: No joint pain or swelling. LYMPHATIC: No swollen glands. NEUROLOGIC: No seizures. No headache, focal weakness or sensory changes. HEMATOLOGIC: No unusual bruising or bleeding. PSYCHIATRIC: No depression or anxiety. Physical Exam - Vital signs Vitals: Temp Pulse Resp BP Pulse Ox 98.3 F 77 18 117/74 100 04/04/20 17:47 04/04/20 17:47 04/04/20 17:47 04/04/20 17:47 04/04/20 17:47 Interpretation: Normal - Notes Notes: VITAL SIGNS: Within normal limits. GENERAL: No acute distress, non-toxic appearance. HEAD: Normal with no signs of head trauma. EYES: EOMI, conjunctiva normal, no discharge. EARS: Hearing grossly intact. NOSE: Normal. NECK: Normal range of motion, no tenderness, supple, no lymphadenopathy, No adenopathy, no JVD. CHEST: Clear breath sounds bilaterally. No wheezes, rales, or rhonchi. CARDIAC: Regular rate and rhythm. S1 and S2, without murmurs, gallops, or rubs. VASCULAR: No Edema. Peripheral pulses normal and equal in all extremities. ABDOMEN: Normal and soft with no tenderness, no masses or pulsatile masses. GENITOURINARY: Normal, No tenderness LYMPATHTIC: No lymphadenopathy noted. MUSCULOSKELETAL: Good range of motion of all major joints. Extremities without clubbing, cyanosis or edema. NEUROLOGICAL: Alert and oriented x 3. No focal sensory or strength deficits. Speech normal. Follows commands appropriately. PSYCHIATRIC: Normal Affect, judgement and mood. SKIN: Normal appearance with no rashes or lesions. Course - Re-evaluation Re-evalutation: 04/05/20 03:05 Patient appears well on exam. She is in no acute distress. Vitals are within normal limits. She has not had any pain in the ER. She states she also has not had any diarrhea. Patient is concerned that she may have an ulcer. I informed her that she would need to see GI for an endoscopy as the CT is unable to vegetable picker an ulcer. She is also concerned that she may have a hiatal hernia. Her CAT scan did not show any acute findings. She states this happens when she lifts things. Possibly this could be a muscle pain. She was instructed that she could take Tylenol as needed or anti-inflammatories. Was also told to follow-up with her PCP as she may need stool cultures. Patient is very agreeable to the plan. I will prescribe her a trial of Pepcid. She was given strict return precautions including worsening pain, fever, vomiting. - Vital Signs Vital signs: Temp Pulse Resp BP Pulse Ox 98.0 F 72 16 102/52 L 100 04/04/20 22:57 04/04/20 22:57 04/04/20 22:57 04/04/20 22:57 04/04/20 22:57 - Laboratory Result Diagrams: 04/04/20 18:53 04/04/20 18:53 Laboratory results interpreted by me: 04/04/20 04/04/20 04/04/20 18:53 18:53 18:53 WBC 10.9 H ALT 71 H Total Protein 5.8 L Urine Protein 30 H Urine Urobilinogen 2.0 H - Diagnostic Test Radiology reviewed: Image reviewed, Reports reviewed Discharge - Discharge Clinical Impression: Abdominal pain Qualifiers: Abdominal location: epigastric Qualified Code(s): R10.13 - Epigastric pain Disposition: HOME, SELF-CARE Instructions: Abdominal Pain ([facility]) Additional Instructions: Follow-up with your family doctor. He may need to do stool cultures. I provided the number for GI as well. Please return for any worsening symptoms. Prescriptions: Famotidine [Pepcid 20 mg Tablet] 20 mg PO DAILY #12 tablet Forms: Return to Work Referrals: ZAK OLIVAS DO [Primary Care Provider] - Follow up as needed TAMMI BUCKLEY MD [ACTIVE STAFF] - Follow up as needed
[2020-04-05 03:18] VITALS: BP 109/78
== END 2020-04-05 03:17 | disposition home or self-care (01) ==
LOC: ER 17:23
DX: R10.13 Epigastric pain (principal); R19.7 Diarrhea, unspecified; F17.200 Nicotine dependence, unspecified, uncomplicated; Z90.49 Acquired absence of other specified parts of digestive tract; Z90.710 Acquired absence of both cervix and uterus; Z88.8 Allergy status to other drugs, medicaments and biological substances; Z88.6 Allergy status to analgesic agent
CPT/HCPCS: 36415; 74177; 80053; 81001; 85025; 99284